=== PATIENT | male | born 1980 | race Caucasian/White ===

== ENCOUNTER 2019-04-25 21:26 | Emergency (ER) | payer OTHER ==
[~2019-04-25] VITALS: Ht 180.3 cm; Wt 77.1 kg
[2019-04-25] MEDS ORDERED: IBUPROFEN 600600 M1 PO (22:22)
[2019-04-25] MEDS ORDERED: LORCET 5-325 M1 EACH PO (22:34)
[2019-04-26 00:15] VITALS: BP 127/88
== END 2019-04-26 00:02 ==
LOC: ER 21:26
DX: S62.390A Other fracture of second metacarpal bone, right hand, initial encounter for closed fracture (principal); S16.1XXA Strain of muscle, fascia and tendon at neck level, initial encounter; W01.0XXA Fall on same level from slipping, tripping and stumbling without subsequent striking against object, initial encounter; Y93.89 Activity, other specified; Y92.89 Other specified places as the place of occurrence of the external cause; Y99.8 Other external cause status